=== PATIENT | male | born 1995 | race Two or more races ===

== ENCOUNTER 2019-12-19 01:41 | Emergency (ER) | payer MEDICAID ==
[~2019-12-19] VITALS: Ht 182.9 cm; Wt 90.7 kg
[2019-12-19 02:04] VITALS: BP 159/88
== END 2019-12-19 02:35 | disposition home or self-care (01) ==
LOC: ER 01:41
DX: L02.212 Cutaneous abscess of back [any part, except buttock and flank] (principal); F17.200 Nicotine dependence, unspecified, uncomplicated; Z98.890 Other specified postprocedural states

== ENCOUNTER 2019-12-28 21:30 | Emergency (ER) | payer MEDICAID ==
[~2019-12-28] VITALS: Ht 182.9 cm; Wt 90.7 kg
--- NOTE | 2019-12-28 22:10 | NUR ---
PT AAOX4. BIBSELF. C/O R BIG TOE PAIN "I HAVE GOUT" X3 DAYS 08/14 PAIN. PLACED IN CHAIR 6. AWAITING MD FOR EVAL.
[2019-12-28] MEDS ORDERED: KETOROLAC TROMETHAMINE INJ 60 MG/2 ML VIAL IM ONE (23:00)
[2019-12-28] MEDS ORDERED: KETOROLAC TROMETHAMINE INJ 30 MG/ML VIAL ONE (23:04)
--- NOTE | 2019-12-28 23:12 | NUR ---
MEDS GIVEN, AWAITING XRAY.
--- NOTE | 2019-12-28 23:13 | NUR ---
BROUGHT BACK FROM XRAY
--- NOTE | 2019-12-29 01:22 | NUR ---
Patient discharged to home in stable condition. Written and verbal after care instructions given. Patient verbalizes understanding of instruction and RX. VSS. Pt ambulated with steady gait. No acute distress noted.
[2019-12-29 01:23] VITALS: BP 132/72
== END 2019-12-29 01:24 | disposition home or self-care (01) ==
LOC: ER 21:31
DX: L03.115 Cellulitis of right lower limb (principal); M79.671 Pain in right foot; F17.200 Nicotine dependence, unspecified, uncomplicated; Z98.890 Other specified postprocedural states
CPT/HCPCS: 73630; 96372; 99283; J1885